=== PATIENT | female | born 1940 | race Caucasian/White ===

== ENCOUNTER 2021-04-14 09:37 | Outpatient (CLI) | payer MEDICARE ==
[2021-04-15 11:00] LABS: SARS-CoV-2 PCR by NAA Not Detected (NotDetected)
== END 2021-04-14 09:38 | disposition home or self-care (01) ==
LOC: CSHLAB 09:37
PROVIDERS: ATTEND Internal Medicine Gastroenterology
DX: Z20.822 Contact with and (suspected) exposure to COVID-19 (principal); K63.5 Polyp of colon
CPT/HCPCS: U0003; U0005

== ENCOUNTER 2021-04-17 10:02 | Day surgery (SDC) | payer MEDICARE ==
[2021-04-15 15:32] VITALS: BMI 18.1
[2021-04-17] MEDS ORDERED: Lidocaine 1% MPF 2 ML VIAL ONE (10:39)
[2021-04-17] MEDS ORDERED: PROPOFOL 20 ML ONE ×2 (11:06)
== END 2021-04-17 12:45 | disposition home or self-care (01) ==
LOC: CSHSDC 10:02
PROVIDERS: ATTEND Internal Medicine Gastroenterology
PROC: 0DBH8ZZ Excision of Cecum, Via Natural or Artificial Opening Endoscopic (ICD-10-PCS; principal; 2021-04-17)
DX: Z12.11 Encounter for screening for malignant neoplasm of colon (principal); D12.0 Benign neoplasm of cecum; Z80.0 Family history of malignant neoplasm of digestive organs; K57.30 Diverticulosis of large intestine without perforation or abscess without bleeding; K64.8 Other hemorrhoids; K21.9 Gastro-esophageal reflux disease without esophagitis; Z85.030 Personal history of malignant carcinoid tumor of large intestine
CPT/HCPCS: 88305; J2704

== ENCOUNTER 2021-10-09 14:58 | Outpatient (CLI) | payer MEDICARE | END 2021-10-09 14:59 | disposition home or self-care (01) | LOC: CSHRAD 14:58 | PROVIDERS: ATTEND Internal Medicine Rheumatology | DX: M25.552 Pain in left hip (principal); M46.1 Sacroiliitis, not elsewhere classified ==

== ENCOUNTER 2022-04-06 07:52 | Day surgery (SDC) | payer MEDICARE ==
[2022-03-31 14:40] VITALS: BMI 18.6
[2022-04-06] MEDS ORDERED: PROPOFOL 20 ML ONE (09:55)
[2022-04-06] MEDS ORDERED: PROPOFOL 40 ML ONE (09:55)
[2022-04-06] MEDS ORDERED: Lidocaine 2% MPF 10 ML AMP (For Epidural Use) ONE (09:55)
[2022-04-06] MEDS ORDERED: PHENYLEPHRINE-NS 100 MCG/ML 10 ML SYRINGE ONE (10:37)
== END 2022-04-06 11:43 | disposition home or self-care (01) ==
LOC: CSHSDC 07:52
PROVIDERS: ATTEND Internal Medicine Gastroenterology
PROC: 0DBH8ZZ Excision of Cecum, Via Natural or Artificial Opening Endoscopic (ICD-10-PCS; principal; 2022-04-06)
PROC: 0DBL8ZZ Excision of Transverse Colon, Via Natural or Artificial Opening Endoscopic (ICD-10-PCS; 2022-04-06)
DX: D12.0 Benign neoplasm of cecum (principal); D12.3 Benign neoplasm of transverse colon; K57.30 Diverticulosis of large intestine without perforation or abscess without bleeding; K64.8 Other hemorrhoids; K62.89 Other specified diseases of anus and rectum; Z80.0 Family history of malignant neoplasm of digestive organs; Z86.010 Personal history of colon polyps; I10 Essential (primary) hypertension; E78.5 Hyperlipidemia, unspecified; E03.9 Hypothyroidism, unspecified; G43.909 Migraine, unspecified, not intractable, without status migrainosus; K21.9 Gastro-esophageal reflux disease without esophagitis; R32 Unspecified urinary incontinence; M19.90 Unspecified osteoarthritis, unspecified site; Z85.038 Personal history of other malignant neoplasm of large intestine; Z79.899 Other long term (current) drug therapy
CPT/HCPCS: 88305; J2704

== ENCOUNTER 2022-08-27 14:13 | Outpatient (CLI) | payer MEDICARE | END 2022-08-27 14:14 | disposition home or self-care (01) | LOC: CSHCT 14:13 | PROVIDERS: ATTEND Anesthesiology Pain Medicine | DX: S22.060A Wedge compression fracture of T7-T8 vertebra, initial encounter for closed fracture (principal); S22.070D Wedge compression fracture of T9-T10 vertebra, subsequent encounter for fracture with routine healing; S32.010D Wedge compression fracture of first lumbar vertebra, subsequent encounter for fracture with routine healing; Z98.890 Other specified postprocedural states | CPT/HCPCS: 72128 ==

== ENCOUNTER 2023-10-28 06:31 | Day surgery (SDC) | payer MEDICARE ==
[2023-10-26 14:41] VITALS: BMI 17.8
[2023-10-28] MEDS ORDERED: PROPOFOL 40 ML ONE (09:14)
[2023-10-28] MEDS ORDERED: Lidocaine 1% PF 5 ML VIAL ONE (09:17)
[2023-10-28] MEDS ORDERED: PROPOFOL 20 ML ONE (09:48)
== END 2023-10-28 11:00 | disposition home or self-care (01) ==
LOC: CSHSDC 06:31
PROVIDERS: ATTEND Internal Medicine Gastroenterology
PROC: 0DB68ZX Excision of Stomach, Via Natural or Artificial Opening Endoscopic, Diagnostic (ICD-10-PCS; principal; 2023-10-28)
PROC: 0DBK8ZX Excision of Ascending Colon, Via Natural or Artificial Opening Endoscopic, Diagnostic (ICD-10-PCS; 2023-10-28)
PROC: 0DBH8ZX Excision of Cecum, Via Natural or Artificial Opening Endoscopic, Diagnostic (ICD-10-PCS; 2023-10-28)
DX: D64.9 Anemia, unspecified (principal); D12.0 Benign neoplasm of cecum; D12.2 Benign neoplasm of ascending colon; K21.9 Gastro-esophageal reflux disease without esophagitis; K44.9 Diaphragmatic hernia without obstruction or gangrene; K29.70 Gastritis, unspecified, without bleeding; K31.89 Other diseases of stomach and duodenum; K64.9 Unspecified hemorrhoids; K62.89 Other specified diseases of anus and rectum; I10 Essential (primary) hypertension; E78.5 Hyperlipidemia, unspecified; G43.909 Migraine, unspecified, not intractable, without status migrainosus; R63.4 Abnormal weight loss; Z79.899 Other long term (current) drug therapy; Z88.1 Allergy status to other antibiotic agents; Z86.010 Personal history of colon polyps; Z98.890 Other specified postprocedural states; Z80.0 Family history of malignant neoplasm of digestive organs
CPT/HCPCS: 43239; 45385; J2704; 88305

== ENCOUNTER 2024-03-15 13:12 | Outpatient (CLI) | payer MEDICARE | END 2024-03-15 13:13 | disposition home or self-care (01) | LOC: CSHMRI 13:12 | PROVIDERS: ATTEND Nurse Practitioner Family | DX: S32.000A Wedge compression fracture of unspecified lumbar vertebra, initial encounter for closed fracture (principal); S32.10XA Unspecified fracture of sacrum, initial encounter for closed fracture; Z98.890 Other specified postprocedural states; M47.816 Spondylosis without myelopathy or radiculopathy, lumbar region; M48.061 Spinal stenosis, lumbar region without neurogenic claudication; M51.369 Other intervertebral disc degeneration, lumbar region without mention of lumbar back pain or lower extremity pain; M41.9 Scoliosis, unspecified; M48.07 Spinal stenosis, lumbosacral region | CPT/HCPCS: 72148; 72195 ==

== ENCOUNTER 2024-03-15 15:09 | Outpatient (CLI) | payer MEDICARE | END 2024-03-15 15:10 | disposition home or self-care (01) | LOC: CSHMAMMO 15:09 | PROVIDERS: ATTEND Internal Medicine Rheumatology | DX: M81.0 Age-related osteoporosis without current pathological fracture (principal); M85.851 Other specified disorders of bone density and structure, right thigh | CPT/HCPCS: 77080 ==